=== PATIENT | male | born 1935 | race Caucasian/White ===

== ENCOUNTER 2018-07-28 17:02 | Inpatient (IN) | payer OTHER, MEDICAID ==
[~2018-07-28] VITALS: Ht 177.8 cm; Wt 70.8 kg
[2018-07-29] MEDS ORDERED: LORAZEPAM 0.5 MG TABLET PO PRN
[2018-07-29] MEDS ORDERED: MAGNESIUM HYDROXIDE 30 ML UDC PO PRN
[2018-07-29] MEDS ORDERED: ACETAMINOPHEN 325 MG TABLET PO PRN
[2018-07-29] MEDS ORDERED: MAG HYDROX/AL HYDROX/SIMETH 30 ML UDC PO PRN
[2018-07-29] MEDS ORDERED: MULT1TAB73 PO (00:42)
[2018-07-29] MEDS ORDERED: QUET25TA PO (00:42)
[2018-07-29] MEDS ORDERED: QUET50TA15 PO (00:42)
[2018-07-29] MEDS ORDERED: MEMA5TAB15 PO (00:42)
[2018-07-29] MEDS ORDERED: NIFE30TA89 PO (00:42)
[2018-07-29] MEDS ORDERED: DONE10TA44 PO (00:42)
[2018-07-29] MEDS ORDERED: ASPI-605 PO (00:45)
[2018-07-29] MEDS ORDERED: ATOR10TA PO (00:45)
[2018-07-29 01:50] VITALS: BP 125/70
--- NOTE | 2018-07-29 02:01 | NUR ---
INTIALLY NOTES: ADMITTED THIS 83 Y/O MALE FROM [facility], PATIENT INTIALLY FROM HOME , PT. ADMITTED 5150 HOLD , PER HOLD COMPLAING OF AGGRESSIVE BEHAVIOR TOWARDS HIS FAMILY,AGITATION ,CONFUSED AND RESPONDING TO INTERNAL STIMULI AND PT. ATTEMPT TO THROW HIS WALKER AT HER DAGUHTER ,DEMENTIA,UNABLE TO CONTRACT FOR SAFETY, UPON FACE TO FACE ASSESSMENT PATIENT IS A&O X-1, CONFUSED ,DISORGNIZED, UNCOOPERTIVE, DEPRESSED MOOD , FLAT AFFECT ,EASILY AGITATED , PT.IS POOR HISTORIAN, POOR INSIGHT ,POOR JUDGEMENT ,V/S WNL, NO ACUTE DISTRESS NOTED , MD AWARE AND NOTIFIED OF THE ADMISSION, ENCOURAGED PT. VERBALIZED ANY FEELING CONCERN TO STAFF, ORIENT TO UNIT POLICY, WILL CONTINUE TO MONITOR FOR Q15, CONTRACT FOR SAFETY AND BEHAVIOR.
[2018-07-29] MEDS ORDERED: Z GUARD REMEDY 2 OZ OINT TP PRN (04:00)
[2018-07-29 07:48] LABS: ALANINE AMINOTRANSFERASE 25 U/L (12-78); ALBUMIN 3.1 g/dL (3.4-5.0); ALKALINE PHOSPHATASE 93 U/L (46-116); ASPARTATE AMINOTRANSFERASE 23 U/L (15-37); BILIRUBIN,TOTAL 0.4 mg/dL (0.2-1.0); CALCIUM, SERUM 8.8 mg/dL (8.5-10.1); CARBON DIOXIDE 29 mmol/L (21-32); CHLORIDE 106 mmol/L (98-107); CREATININE 1.5 mg/dL (0.6-1.3); GLUCOSE 87 mg/dL (74-106); POTASSIUM 4.2 mmol/L (3.5-5.1); SODIUM SERUM 142 mmol/L (136-145); TOTAL PROTEIN, SERUM 6.8 g/dL (6.4-8.2); UREA NITROGEN, BLOOD 23 mg/dL (7-18)
[2018-07-29 08:00] VITALS: BP 143/64
[2018-07-29] MEDS: Z GUARD REMEDY 2 OZ OINT TP SCH (09:37)
--- NOTE | 2018-07-29 11:50 | NUR ---
UR NOTE: SIRIA completed clinical review via voicemail with [employer] SERGEY Flores [phone] FAX# [phone].
[2018-07-29] MEDS: NIFEdipine XL (30MG) 30 MG TAB PO SCH (12:49)
[2018-07-29] MEDS: MULTIVITAMINS,THERAGRAN 1 UDTAB TABLET PO SCH (12:50)
[2018-07-29] MEDS: QUETIAPINE FUMARATE 25 MG TABLET PO SCH ×3 (12:50→20:57)
[2018-07-29] MEDS: MEMANTINE HCL 5 MG TABLET PO SCH (12:50)
[2018-07-29] MEDS: DIVALPROEX SODIUM 125 MG CAP.SPRINK PO SCH ×2 (12:50→20:57)
[2018-07-29] MEDS: ASPIRIN EC 81 MG TABLET.DR PO SCH (12:50)
--- NOTE | 2018-07-29 15:30 | NUR ---
SIRIA spoke with pts granddaughter Marija [phone] who stated she is pts DPOA. SW requested she bring DPOA documentation to place in pts chart. Granddaughter also stated she wanted to change pts status from FULL CODE to DNR. SIRIA asked granddaughter if she had a POLST for pt and she stated she did not. SIRIA informed her that she would leave POLST in pts chart for her to fill out with RN once she came to visit pt. Granddaughter agreed. Granddaughter also stated that starting August 03 pts HMO will be cancelled and he will have Medicare, she stated pt needs placement and she will like him placed near [place] or [place].
[2018-07-29 16:00] VITALS: BP 136/55
[2018-07-29] MEDS: ATORVASTATIN 10 MG TABLET PO SCH (17:35)
--- NOTE | 2018-07-29 18:27 | NUR ---
GPS RN NOTE: NOTIFIED DAUGHTER (JOSE BYERS) REGARDING THE CODE STATUS OF THE PATIENT. DAUGHTER WANTS HER FATHER TO BE DNR STATUS AND SHE WILL SIGN THE POLST WHEN SHE COMES HERE.
[2018-07-29 20:19] VITALS: BP 121/66
[2018-07-29 20:32] VITALS: BP 131/58
[2018-07-29] MEDS: DONEPEZIL 5 MG TABLET PO SCH (21:04)
[2018-07-29] MEDS: TEMAZEPAM 7.5 MG CAPSULE PO PRN (21:26)
--- NOTE | 2018-07-30 07:48 | NUR ---
GPS RN NOTES RECEIVED PT LAYING IN BED, RESTING COMFORTABLY. PT AWAKE AND ALERT. RESPIRATIONS ARE EVEN AND UNLABORED, NOT IN ANY ACUTE DISTRESS NOTED. PT DENIES ANY PAIN AT THIS TIME, NO C/O SOB, N/V. NO IV ACCESS. PT ABLE TO MAKE NEEDS KNOWN. SAFETY MEASURES ARE IN PLACE. WILL MONITOR THROUGHOUT SHIFT FOR CONTINUITY OF CARE.
[2018-07-30 08:00] VITALS: BP 145/64
[2018-07-30] MEDS: Z GUARD REMEDY 2 OZ OINT TP SCH (08:36)
[2018-07-30] MEDS: MEMANTINE HCL 5 MG TABLET PO SCH (08:37)
[2018-07-30] MEDS: ASPIRIN EC 81 MG TABLET.DR PO SCH (08:37)
[2018-07-30] MEDS: MULTIVITAMINS,THERAGRAN 1 UDTAB TABLET PO SCH (08:37)
[2018-07-30] MEDS: NIFEdipine XL (30MG) 30 MG TAB PO SCH (08:37)
[2018-07-30] MEDS: DIVALPROEX SODIUM 125 MG CAP.SPRINK PO SCH ×3 (08:37→21:14)
--- NOTE | 2018-07-30 09:35 | NUR ---
INITIAL DISCHARGE PLAN: Per pts granddaughter Marija [phone], pt needs SNF placement. SW will help form a safe and proper discharge in collaboration with .
[2018-07-30] MEDS: QUETIAPINE FUMARATE 25 MG TABLET PO SCH ×3 (12:24→21:14)
--- NOTE | 2018-07-30 15:26 | NUR ---
DISCHARGE PLANNING: SW received a call from Yaneth, clinical social work aide/case loader operator with Ambulatory case management [phone] stating she will be collaborating with SW for placement assistance for pt. Yaneth provided SIRIA with contact information for Christelle Zamudio lawn care specialist with [email or web address] [phone] and Christian Jaquez with [employer] [phone]. Yaneth stated she contacted Christelle Zamudio who stated she will be coming to assess pt and assist with placing him at a locked facility in the [facility].
[2018-07-30 16:00] VITALS: BP 131/63
[2018-07-30] MEDS: ATORVASTATIN 10 MG TABLET PO SCH (17:01)
[2018-07-30 20:00] VITALS: BP 149/72
[2018-07-30] MEDS: TEMAZEPAM 7.5 MG CAPSULE PO PRN (21:15)
[2018-07-30] MEDS: DONEPEZIL 5 MG TABLET PO SCH (21:15)
[2018-07-31 06:49] LABS: BASOPHILS % (AUTO) 0.5 % (0.0-2.0); EOSINOPHILS % (AUTO) 3.7 % (0.0-6.0); HEMATOCRIT 43 % (39-51); HEMOGLOBIN 14.3 g/dL (13.5-17.5); LYMPHOCYTES # (AUTO) 1.7 /CMM (0.8-4.8); LYMPHOCYTES % (AUTO) 19.5 % (20.0-44.0); MEAN CORPUSCULAR HGB CONC 33 g/dl (31.0-36.0); MEAN CORPUSCULAR VOLUME 82 fL (80-96); MONOCYTES # (AUTO) 0.7 /CMM (0.1-1.30); MONOCYTES % (AUTO) 7.7 % (2.0-12.0); NEUTROPHILS # (AUTO) 6.1 /CMM (1.8-8.9); NEUTROPHILS % (AUTO) 68.6 % (43.0-81.0); PLATELET COUNT (AUTO) 220 /CMM (150-450); RED BLOOD CELL COUNT(AUTO) 5.21 MIL/uL (4.5-6.0); WHITE BLOOD COUNT (AUTO) 8.9 K/uL (4.3-11.0)
[2018-07-31 07:21] LABS: CARBON DIOXIDE 27 mmol/L (21-32); CHLORIDE 103 mmol/L (98-107); CREATININE 1.1 mg/dL (0.6-1.3); GLUCOSE 99 mg/dL (74-106); PHOSPHORUS 2.9 mg/dL (2.5-4.9); POTASSIUM 3.5 mmol/L (3.5-5.1); SODIUM SERUM 141 mmol/L (136-145); UREA NITROGEN, BLOOD 13 mg/dL (7-18)
[2018-07-31 08:00] VITALS: BP 129/69
[2018-07-31] MEDS: MULTIVITAMINS,THERAGRAN 1 UDTAB TABLET PO SCH (08:55)
[2018-07-31] MEDS: MEMANTINE HCL 5 MG TABLET PO SCH (08:55)
[2018-07-31] MEDS: ASPIRIN EC 81 MG TABLET.DR PO SCH (08:55)
[2018-07-31] MEDS: NIFEdipine XL (30MG) 30 MG TAB PO SCH (08:55)
[2018-07-31] MEDS: DIVALPROEX SODIUM 125 MG CAP.SPRINK PO SCH ×3 (08:57→21:34)
[2018-07-31] MEDS: Z GUARD REMEDY 2 OZ OINT TP SCH (08:58)
--- NOTE | 2018-07-31 09:25 | NUR ---
DISCHARGE PLANNING: SIRIA received a call from Christelle Zamudio correspondence specialist with [employer] [facility] [phone] stating she only specialized in Assisted Living/Memory Care placement. She stated she is unable to assist SW with placing pt at a SNF. Addendum: 07/31/18 at 0930 by JUDIT BEVERLY Christelle provided SIRIA with [facility] (Memory Care locked SNF) Address: [address] [place] [address] information that may be able to accept pt.
[2018-07-31] MEDS: QUETIAPINE FUMARATE 25 MG TABLET PO SCH ×3 (12:45→21:35)
[2018-07-31 16:00] VITALS: BP 154/75
[2018-07-31] MEDS: ATORVASTATIN 10 MG TABLET PO SCH (17:15)
[2018-07-31 20:00] VITALS: BP 134/84
[2018-07-31] MEDS: DONEPEZIL 5 MG TABLET PO SCH (21:34)
[2018-08-01 08:00] VITALS: BP 129/63
[2018-08-01] MEDS: DIVALPROEX SODIUM 125 MG CAP.SPRINK PO SCH ×3 (08:21→21:08)
[2018-08-01] MEDS: MULTIVITAMINS,THERAGRAN 1 UDTAB TABLET PO SCH (08:21)
[2018-08-01] MEDS: NIFEdipine XL (30MG) 30 MG TAB PO SCH (08:22)
[2018-08-01] MEDS: MEMANTINE HCL 5 MG TABLET PO SCH (08:22)
[2018-08-01] MEDS: ASPIRIN EC 81 MG TABLET.DR PO SCH (08:22)
[2018-08-01] MEDS: Z GUARD REMEDY 2 OZ OINT TP SCH (09:42)
[2018-08-01] MEDS: QUETIAPINE FUMARATE 25 MG TABLET PO SCH ×3 (12:24→21:08)
[2018-08-01 16:00] VITALS: BP 115/59
[2018-08-01] MEDS: ATORVASTATIN 10 MG TABLET PO SCH (17:14)
[2018-08-01 20:00] VITALS: BP 141/59
[2018-08-01] MEDS: DONEPEZIL 5 MG TABLET PO SCH (21:08)
[2018-08-02 08:00] VITALS: BP 156/64
[2018-08-02] MEDS: NIFEdipine XL (30MG) 30 MG TAB PO SCH (08:11)
[2018-08-02] MEDS: ASPIRIN EC 81 MG TABLET.DR PO SCH (08:11)
[2018-08-02] MEDS: DIVALPROEX SODIUM 125 MG CAP.SPRINK PO SCH ×3 (08:11→21:32)
[2018-08-02] MEDS: MULTIVITAMINS,THERAGRAN 1 UDTAB TABLET PO SCH (08:11)
[2018-08-02] MEDS: MEMANTINE HCL 5 MG TABLET PO SCH (08:11)
[2018-08-02] MEDS: Z GUARD REMEDY 2 OZ OINT TP SCH (08:58)
[2018-08-02] MEDS: QUETIAPINE FUMARATE 25 MG TABLET PO SCH ×3 (12:57→21:32)
[2018-08-02 16:00] VITALS: BP 128/72
[2018-08-02] MEDS: ATORVASTATIN 10 MG TABLET PO SCH (17:05)
--- NOTE | 2018-08-02 19:30 | NUR ---
GPS RN NOTE, RECEIVED PATIENT AWAKE AND IN ROOM NO S/S OR COMPLAINTS OF PAIN AT THIS TIME. PATIENT IS DISPLAYING NO S/S OF APPARENT DISTRESS AT THIS TIME. PATIENT BREATHING IS UNLABORED WITH EQUAL RISE AND FALL OF THE CHEST. PATIENT IS ALERT AND ORIENTED X 1-2 ON ROOM AIR WITH A SPO2 OF 97%. PATIENT IS MED COMPLIANT, DISORGANIZED, DEPRESSED, COOPERATIVE, AND NEEDS REORIENTATION. PATIENT DENIES SUICIDE AND HOMICIDAL IDEATIONS AT THIS TIME. PATIENT ASSISTED WITH TURNING AND REPOSITIONING Q2HR AND PRN FOR COMFORT AND CIRCULATION. PATIENT HAS NO NEEDS AT THIS TIME. PATIENT EDUCATED ON THE USE OF THE CALL [place]OG[place]. PATIENT BED SIDE RAILS ARE UP X 2 FOR SAFETY, BED IS LOCKED AND LOW. WILL CONTINUE TO MONITOR AND MAINTAIN SAFETY Q15 MIN WITH THE HELP OF STAFF.
--- NOTE | 2018-08-02 20:00 | NUR ---
GPS RN NOTE, PATIENT REFUSED TO HAVE PICTURES TAKEN TODAY. OFFERED TO TAKE PICTURES THREE TIMES AND STILL PATIENT REFUSED STATING, " NO I DON'T WANT PICTURES TAKEN TODAY ". EDUCATED PATIENT ON HOSPITAL POLICY OF DOING SKIN EXAM AND TAKING PICTURES. WILL CONTINUE TO MONITOR THIS PATIENT.
[2018-08-02 20:54] VITALS: BP 135/70
[2018-08-02] MEDS: DONEPEZIL 5 MG TABLET PO SCH (21:32)
[2018-08-03 07:05] LABS: BASOPHILS # (AUTO) 0.1 /CMM (0.0-0.2); BASOPHILS % (AUTO) 0.6 % (0.0-2.0); EOSINOPHILS % (AUTO) 3.1 % (0.0-6.0); HEMATOCRIT 41 % (39-51); HEMOGLOBIN 13.4 g/dL (13.5-17.5); LYMPHOCYTES # (AUTO) 1.7 /CMM (0.8-4.8); LYMPHOCYTES % (AUTO) 16.3 % (20.0-44.0); MEAN CORPUSCULAR HGB CONC 33 g/dl (31.0-36.0); MEAN CORPUSCULAR VOLUME 82 fL (80-96); MONOCYTES # (AUTO) 0.7 /CMM (0.1-1.30); MONOCYTES % (AUTO) 6.7 % (2.0-12.0); NEUTROPHILS # (AUTO) 7.7 /CMM (1.8-8.9); NEUTROPHILS % (AUTO) 73.3 % (43.0-81.0); PLATELET COUNT (AUTO) 245 /CMM (150-450); RED BLOOD CELL COUNT(AUTO) 4.93 MIL/uL (4.5-6.0); WHITE BLOOD COUNT (AUTO) 10.5 K/uL (4.3-11.0)
[2018-08-03 07:16] LABS: VALPROIC ACID 18 ug/mL (50-100)
[2018-08-03 07:25] LABS: ALANINE AMINOTRANSFERASE 25 U/L (12-78); ALKALINE PHOSPHATASE 91 U/L (46-116); ASPARTATE AMINOTRANSFERASE 21 U/L (15-37); BILIRUBIN,TOTAL 0.4 mg/dL (0.2-1.0); CALCIUM, SERUM 8.7 mg/dL (8.5-10.1); CARBON DIOXIDE 29 mmol/L (21-32); CHLORIDE 107 mmol/L (98-107); CREATININE 1.3 mg/dL (0.6-1.3); GLUCOSE 82 mg/dL (74-106); SODIUM SERUM 142 mmol/L (136-145); TOTAL PROTEIN, SERUM 6.9 g/dL (6.4-8.2); UREA NITROGEN, BLOOD 22 mg/dL (7-18)
[2018-08-03 08:00] VITALS: BP 121/73
[2018-08-03] MEDS: DIVALPROEX SODIUM 125 MG CAP.SPRINK PO SCH ×3 (08:54→20:52)
[2018-08-03] MEDS: MEMANTINE HCL 5 MG TABLET PO SCH (08:54)
[2018-08-03] MEDS: MULTIVITAMINS,THERAGRAN 1 UDTAB TABLET PO SCH (08:54)
[2018-08-03] MEDS: NIFEdipine XL (30MG) 30 MG TAB PO SCH (08:55)
[2018-08-03] MEDS: ASPIRIN EC 81 MG TABLET.DR PO SCH (08:55)
[2018-08-03] MEDS: Z GUARD REMEDY 2 OZ OINT TP SCH (09:11)
[2018-08-03] MEDS: QUETIAPINE FUMARATE 25 MG TABLET PO SCH ×3 (12:14→20:53)
--- NOTE | 2018-08-03 14:11 | NUR ---
SNF REFERRALS: SIRIA faxed SNF referrals to the following facilities. 1. [facility] Dunia, digital asset coordinator P: [phone] F: [phone] 2. [facility], digital asset coordinator P"[phone] F: [phone] 3. [facility], digital asset coordinator P: [phone] F: [phone] 4: [facility], admission coordinator P: [phone] F; [phone]
[2018-08-03 16:00] VITALS: BP 120/66
[2018-08-03] MEDS: ATORVASTATIN 10 MG TABLET PO SCH (17:10)
[2018-08-03 20:33] VITALS: BP 143/71
[2018-08-03] MEDS: DONEPEZIL 5 MG TABLET PO SCH (21:06)
[2018-08-03] MEDS: TEMAZEPAM 7.5 MG CAPSULE PO PRN (21:23)
[2018-08-04 08:00] VITALS: BP 125/65
[2018-08-04] MEDS: DIVALPROEX SODIUM 125 MG CAP.SPRINK PO SCH ×4 (08:19→20:51)
[2018-08-04] MEDS: MEMANTINE HCL 5 MG TABLET PO SCH (08:19)
[2018-08-04] MEDS: MULTIVITAMINS,THERAGRAN 1 UDTAB TABLET PO SCH (08:19)
[2018-08-04] MEDS: ASPIRIN EC 81 MG TABLET.DR PO SCH (08:20)
[2018-08-04] MEDS: NIFEdipine XL (30MG) 30 MG TAB PO SCH (08:20)
[2018-08-04] MEDS: Z GUARD REMEDY 2 OZ OINT TP SCH (08:20)
--- NOTE | 2018-08-04 10:33 | NUR ---
SNF REFERRAL UPDATE: The following facilities denied pts referral due to pts aggressive behavior upon admission and due to pt being on psych medications. 1. [facility] Dunia, treatment coordinator P: [phone] F: [phone] 2. [facility], treatment coordinator P"[phone] F: [phone] 3. [facility], treatment coordinator P: [phone] F: [phone] 4: [facility], admission coordinator P: [phone] F; [phone]
--- NOTE | 2018-08-04 10:34 | NUR ---
SNF REFERRALS: SW faxed SNF referrals to the following facilities. 1. [facility] Castillo, guest relations coordinator P: [phone] F: [phone] 2. [facility] Lew guest relations coordinator P: [phone] F: [phone] 3. [facility] Angie guest relations coordinator P: [phone] F:[phone]
--- NOTE | 2018-08-04 10:38 | NUR ---
SNF REFERRAL: SIRIA faxed SNF referral to New admissions manager rn at [facility] Address: [address] [place] [address] for review.
--- NOTE | 2018-08-04 10:41 | NUR ---
DISCHARGE PLANNING: SW spoke with pts granddaughter Marija [phone] and informed her 4 SNF's in the [place] have denied pts referral due to his aggressive behavior, granddaughter asked SW to keep referring him to more SNF's, SW informed her that she referred to 3 other SNF's and if those did not accept pt then pt will be discharged to a local SNF. Granddaughter agreed.
--- NOTE | 2018-08-04 10:49 | NUR ---
SW received a call from Raghu, laboratory coordinator at [facility] P: [phone] stating he received fax and will review it.
[2018-08-04] MEDS: QUETIAPINE FUMARATE 25 MG TABLET PO SCH ×3 (13:15→20:55)
--- NOTE | 2018-08-04 14:14 | NUR ---
gps rn note: Patient attended the groups in the dining room, awake, observing, quiet, interact when engaged, finished shower and tolerated well. Will continue to monitor [id number] for safety
[2018-08-04 16:00] VITALS: BP 113/61
[2018-08-04] MEDS: ATORVASTATIN 10 MG TABLET PO SCH (17:03)
--- NOTE | 2018-08-04 18:09 | NUR ---
GPS RN NOTE: PATIENT ATTENDED THE GROUPS IN THE DINING AREA, INTERACT WHEN ENGAGE, ENJOYS LISTENING MUSIC, REFUSED UA COLLECTION AT THIS TIME BUT AGREED TO DO IT LATER. WILL CONTINUE TO MONITOR [id number] FOR SAFETY
[2018-08-04 19:52] VITALS: BP 114/47
[2018-08-04] MEDS: DONEPEZIL 5 MG TABLET PO SCH (21:12)
[2018-08-05 08:00] VITALS: BP 126/65
[2018-08-05] MEDS: ASPIRIN EC 81 MG TABLET.DR PO SCH (08:10)
[2018-08-05] MEDS: NIFEdipine XL (30MG) 30 MG TAB PO SCH (08:10)
[2018-08-05] MEDS: MULTIVITAMINS,THERAGRAN 1 UDTAB TABLET PO SCH (08:11)
[2018-08-05] MEDS: MEMANTINE HCL 5 MG TABLET PO SCH (08:11)
[2018-08-05] MEDS: DIVALPROEX SODIUM 125 MG CAP.SPRINK PO SCH ×4 (08:12→21:02)
[2018-08-05] MEDS: Z GUARD REMEDY 2 OZ OINT TP SCH (08:12)
[2018-08-05 11:16] LABS: APPEARANCE,URINE CLEAR (CLEAR); BILIRUBIN,URINE NEGATIVE (NEGATIVE); BLOOD, URINE NEGATIVE Ery/uL (NEGATIVE); COLOR,URINE YELLOW (YELLOW); KETONES,URINE NEGATIVE (NEGATIVE); LEUKOCYTE ESTERASE ,URINE NEGATIVE (NEGATIVE); NITRITE, URINE NEGATIVE (NEGATIVE); PH,URINE 5.5 (5.0-8.0); PROTEIN,URINE NEGATIVE (NEGATIVE); UGLUCOSE NEGATIVE (NEGATIVE); UROBILINOGEN,URINE 0.2 EU/dL (0.2)
[2018-08-05] MEDS: QUETIAPINE FUMARATE 25 MG TABLET PO SCH ×3 (12:35→21:03)
--- NOTE | 2018-08-05 14:12 | NUR ---
Discharge Planning: Social work contacted [facility] Address: [address] [place] [address] and requested to speak with New community marketing coordinator. No contact was made, social work left message requesting return call for possible placement. Social work contacted [facility], Raghu community marketing coordinator P: [phone], was told decision has not been made. Social work left contact number for return call.
--- NOTE | 2018-08-05 15:30 | NUR ---
Social work received call from manager critical care [facility] Address: [address] [place] [address] who stated facility has sent their facilities identification technician Lisa to conduct pt evaluation today August 05 2018 for possible placement. Social work will follow up.
[2018-08-05 16:00] VITALS: BP 143/58
[2018-08-05] MEDS: ATORVASTATIN 10 MG TABLET PO SCH (17:16)
[2018-08-05 20:03] VITALS: BP 138/62
[2018-08-05] MEDS: DONEPEZIL 5 MG TABLET PO SCH (21:00)
[2018-08-06 08:00] VITALS: BP 136/62
[2018-08-06] MEDS: ASPIRIN EC 81 MG TABLET.DR PO SCH (08:38)
[2018-08-06] MEDS: NIFEdipine XL (30MG) 30 MG TAB PO SCH (08:38)
[2018-08-06] MEDS: MEMANTINE HCL 5 MG TABLET PO SCH (08:38)
[2018-08-06] MEDS: MULTIVITAMINS,THERAGRAN 1 UDTAB TABLET PO SCH (08:38)
[2018-08-06] MEDS: Z GUARD REMEDY 2 OZ OINT TP SCH (08:38)
[2018-08-06] MEDS: DIVALPROEX SODIUM 125 MG CAP.SPRINK PO SCH ×4 (08:38→21:04)
--- NOTE | 2018-08-06 11:21 | NUR ---
Social work received call from careers adviser [facility] Address: [address] [place] [address] requesting any Physical Therapy notes pertaining to pt. Social work faxed physical therapy clinicals to [facility] .
[2018-08-06] MEDS: QUETIAPINE FUMARATE 25 MG TABLET PO SCH ×3 (12:03→21:03)
--- NOTE | 2018-08-06 14:17 | NUR ---
DISCHARGE PLANNING: Social work received call from New at [facility] Address: [address] [place] [address] stating that pt has been accepted to [facility]. Pts grand daughter Marija ) is aware of possible discharge plan. Social work will follow up for a safe and proper discharge.
--- NOTE | 2018-08-06 14:45 | NUR ---
SW received a call from Yaneth social security specialist/case liner with Ambulatory case management [phone] requesting update on pts discharge plan. Social work updated Yaneth regarding placement and daughters acceptance of placement.
--- NOTE | 2018-08-06 14:47 | NUR ---
Social Work: Pt has signed and acknowledge choice of vendor form, filed original in pts chart.
[2018-08-06 16:00] VITALS: BP 136/68
[2018-08-06] MEDS: ATORVASTATIN 10 MG TABLET PO SCH (17:13)
[2018-08-06 19:51] VITALS: BP 136/60
[2018-08-06 20:00] VITALS: BP 136/60
[2018-08-06] MEDS: DONEPEZIL 5 MG TABLET PO SCH (21:03)
[2018-08-07 08:00] VITALS: BP 133/63
[2018-08-07] MEDS: MULTIVITAMINS,THERAGRAN 1 UDTAB TABLET PO SCH (08:39)
[2018-08-07] MEDS: ASPIRIN EC 81 MG TABLET.DR PO SCH (08:39)
[2018-08-07] MEDS: DIVALPROEX SODIUM 125 MG CAP.SPRINK PO SCH ×4 (08:39→19:59)
[2018-08-07] MEDS: MEMANTINE HCL 5 MG TABLET PO SCH (08:39)
[2018-08-07] MEDS: Z GUARD REMEDY 2 OZ OINT TP SCH (08:40)
[2018-08-07] MEDS: NIFEdipine XL (30MG) 30 MG TAB PO SCH (08:40)
[2018-08-07] MEDS: QUETIAPINE FUMARATE 25 MG TABLET PO SCH ×3 (13:14→21:18)
[2018-08-07 16:00] VITALS: BP 121/66
[2018-08-07] MEDS: ATORVASTATIN 10 MG TABLET PO SCH (18:14)
[2018-08-07 20:00] VITALS: BP 117/56
[2018-08-07] MEDS: DONEPEZIL 5 MG TABLET PO SCH (21:19)
[2018-08-07 22:00] VITALS: BP 118/62
[2018-08-08 08:00] VITALS: BP 120/59
[2018-08-08] MEDS: ASPIRIN EC 81 MG TABLET.DR PO SCH (08:52)
[2018-08-08] MEDS: MULTIVITAMINS,THERAGRAN 1 UDTAB TABLET PO SCH (08:52)
[2018-08-08] MEDS: DIVALPROEX SODIUM 125 MG CAP.SPRINK PO SCH ×4 (08:52→20:06)
[2018-08-08] MEDS: MEMANTINE HCL 5 MG TABLET PO SCH (08:52)
[2018-08-08] MEDS: NIFEdipine XL (30MG) 30 MG TAB PO SCH (08:52)
[2018-08-08] MEDS: Z GUARD REMEDY 2 OZ OINT TP SCH (08:53)
[2018-08-08] MEDS: QUETIAPINE FUMARATE 25 MG TABLET PO SCH ×3 (12:35→21:15)
[2018-08-08 16:12] VITALS: BP 119/56
[2018-08-08 16:13] VITALS: BP_SYST 119; BP_SYST 121; BP_DIAS 56; BP_DIAS 66
[2018-08-08] MEDS: ATORVASTATIN 10 MG TABLET PO SCH (18:47)
[2018-08-08 20:00] VITALS: BP 122/59
[2018-08-08] MEDS: DONEPEZIL 5 MG TABLET PO SCH (21:15)
[2018-08-08 22:00] VITALS: BP 112/63
[2018-08-09] MEDS ORDERED: Z GUARD REMEDY 2 OZ OINT TP PRN (06:30)
[2018-08-09 08:00] VITALS: BP 121/59
[2018-08-09] MEDS: ASPIRIN EC 81 MG TABLET.DR PO SCH (08:15)
[2018-08-09] MEDS: NIFEdipine XL (30MG) 30 MG TAB PO SCH (08:16)
[2018-08-09] MEDS: DIVALPROEX SODIUM 125 MG CAP.SPRINK PO SCH ×4 (08:16→20:08)
[2018-08-09] MEDS: MEMANTINE HCL 5 MG TABLET PO SCH (08:16)
[2018-08-09] MEDS: Z GUARD REMEDY 2 OZ OINT TP SCH ×2 (08:17)
[2018-08-09] MEDS: MULTIVITAMINS,THERAGRAN 1 UDTAB TABLET PO SCH (08:29)
[2018-08-09] MEDS: QUETIAPINE FUMARATE 25 MG TABLET PO SCH ×3 (12:08→21:07)
[2018-08-09 16:00] VITALS: BP 126/64
[2018-08-09] MEDS: ATORVASTATIN 10 MG TABLET PO SCH (17:33)
[2018-08-09 19:37] VITALS: BP 125/60
[2018-08-09] MEDS: DONEPEZIL 5 MG TABLET PO SCH (21:07)
[2018-08-10] MEDS: NIFEdipine XL (30MG) 30 MG TAB PO SCH (08:18)
[2018-08-10] MEDS: ASPIRIN EC 81 MG TABLET.DR PO SCH (08:19)
[2018-08-10] MEDS: DIVALPROEX SODIUM 125 MG CAP.SPRINK PO SCH ×2 (08:19→13:09)
[2018-08-10] MEDS: MEMANTINE HCL 5 MG TABLET PO SCH (08:19)
[2018-08-10] MEDS: MULTIVITAMINS,THERAGRAN 1 UDTAB TABLET PO SCH (08:19)
[2018-08-10] MEDS: Z GUARD REMEDY 2 OZ OINT TP SCH ×2 (08:21→10:52)
[2018-08-10 08:47] VITALS: BP 125/67
[2018-08-10] MEDS: QUETIAPINE FUMARATE 25 MG TABLET PO SCH (13:08)
--- NOTE | 2018-08-10 14:00 | NUR ---
PT PREPARED FRO D/C PER . PT TOLERATING ROOM AIR WITHOUT DISTRESS. DENIES PAIN. PT REFUSED D/C PHOTOGRAPHS. PT BRIEFED ON SOH D/C PACKET, POC AND MEDICATIONS BUT REMAINED PASSIVE AND UNINTERESTED, STATES HE UNDERSTANDS. ENDORSED PT FAMILY AWARE FROM . PT WITH ALL BELONGINGS AND DOCUMENT SIGNED. D/C PAPERS SIGNED. ENDORSED PT HEALTH STATUS, NEEDS, MEDICATIONS AND PERTINENT DETAILS TO CAT GAITAN. PT WITH EMT TRANSPORT.
== END 2018-08-10 14:10 | DRG 885 ==
LOC: GPS 23:38
PROVIDERS: ADMIT Psychiatry & Neurology Psychosomatic Medicine
DX: F29 Unspecified psychosis not due to a substance or known physiological condition (principal); F01.50 Vascular dementia, unspecified severity, without behavioral disturbance, psychotic disturbance, mood disturbance, and anxiety; N17.9 Acute kidney failure, unspecified; E44.1 Mild protein-calorie malnutrition; F41.9 Anxiety disorder, unspecified; G31.83 Neurocognitive disorder with Lewy bodies; F02.80 Dementia in other diseases classified elsewhere, unspecified severity, without behavioral disturbance, psychotic disturbance, mood disturbance, and anxiety; E86.0 Dehydration; E78.5 Hyperlipidemia, unspecified; Z87.891 Personal history of nicotine dependence
CPT/HCPCS: 36415; 80048-TC; 80053-TC; 80164-TC; 81000-TC; 83735-TC; 84100-TC; 85025-TC; 87081-TC; A4349